=== PATIENT | male | born 1950 | race Caucasian/White ===

== ENCOUNTER 2017-05-30 16:21 | Observation (INO) | payer MEDICARE, OTHER ==
[~2017-05-30] VITALS: Ht 185.4 cm; Wt 93.0 kg
--- OUTSIDE RECORDS SUMMARY | 2017-05-30 16:24 | XMS REPORT | Summary of Care ---
Author Author Sergei HERNANDEZ Melania Organization Unknown Address [facility] Phone Unavailable Care Team Providers Care Casting Machine Operator Automatic Name Role Phone Melania Mai LVN Unavailable Unavailable EVE Hoyos, FANNY Campos Unavailable CANELO Eli, KARINA Unavailable Unavailable HENRY Eli, ANNA Unavailable Unavailable CANELO HDZ, KARINA QUINN Unavailable Unavailable EVE HOOPER [facility], FANNY Mccormick Unavailable Unavailable Unavailable Unavailable Functional Status Name Dates Details Functional status health issues are not documented Status: Name Dates Details Cognitive status health issues are not documented Status: Problems Name Dates Details Proteinuria (791.0, R80.9) Status: Active 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, N52.9) Status: Active Non-compliance (V15.81, Z91.19) Status: Active History of Acute bacterial prostatitis (601.0, N41.0) Status: Resolved History of pneumonia (V12.61, Z87.01) Status: Resolved Insomnia (780.52, G47.00) Status: Active Need for hepatitis C screening test (V73.89, Z11.59) Status: Active GERD (gastroesophageal reflux disease) (530.81, K21.9) Status: Active Vitamin deficiency (269.2, E56.9) Status: Active SOBOE (shortness of breath on exertion) (786.05, R06.02) Status: Active Encounter for prostate cancer screening (V76.44, Z12.5) Status: Active Colon cancer screening (V76.51, Z12.11) Status: Active Elevated brain natriuretic peptide (BNP) level (790.99, R79.89) Status: Active Dizziness (780.4, R42) Status: Active Other elevated white blood cell (WBC) count (288.69, D72.828) Status: Active Chest pain due to myocardial ischemia, unspecified ischemic chest pain type ( 786.50, I20.9) Status: Active Hyperlipidemia (272.4, E78.5) Status: Active Elevated BP without diagnosis of hypertension (796.2, R03.0) Status: Active Allergic rhinitis, seasonal (477.9, J30.2) Status: Active Dysuria (788.1, R30.0) Status: Active Back pain (724.5, M54.9) Status: Active Prostatitis, unspecified prostatitis type (601.9, N41.9) Status: Active Hypothyroidism (244.9, E03.9) Status: Active Other fatigue (780.79, R53.83) Status: Active Medications Name Dates Details Vyvanse 50 MG Oral Capsule TAKE 1 CAPSULE DAILY IN THE MORNING. Active Cialis 20 MG Oral Tablet TAKE 1 TABLET 1 HOUR BEFORE ACTIVITY NEEDED. * Quantity: 6 Refills: 5 FANNY PRADO N.P. * Start : 31-Jan-2014 Active Atorvastatin Calcium 40 MG Oral Tablet TAKE 1 TABLET DAILY DIRECTED. * Refills: 0 Active 90 Tablet Bottle Metoprolol Succinate ER 25 MG Oral Tablet Extended Release 24 Hour TAKE 1 TABLET DAILY. * Refills: 0 Active Tamsulosin HCl - 0.4 MG Oral Capsule TAKE 1 CAPSULE DAILY * Quantity: 30 Refills: 0 Active Lunesta 3 MG Oral Tablet TAKE 1 TABLET AT BEDTIME. * Refills: 0 Active Vitamin D TABS take 50,000 units weekly * Refills: 0 Active Clopidogrel Bisulfate 75 MG Oral Tablet TAKE 1 TABLET BY MOUTH EVERY DAY * Refills: 0 Active 30 Tablet Bottle Synthroid 175 MCG Oral Tablet TAKE 1 TABLET BY MOUTH EVERY DAY * Quantity: 90 Refills: 0 KARINA LEMOS M.D. * Start : 05-Dec-2016 Active Celecoxib 200 MG Oral Capsule TAKE 1 CAPSULE TWICE DAILY * Quantity: 60 Refills: 3 ANNA FIGUEROA M.D. * Start : 24-Feb-2017 Active Allergies and Adverse Reactions Name Dates Details Tetracyclines (Allergy) Status: Active Past Medical History Name Dates Details History of Acute bacterial prostatitis (601.0, N41.0) Status: Resolved History of Acute pain of left shoulder (719.41, M25.512) Status: Resolved History of Acute pharyngitis due to other specified organisms (462, J02.8) Status: Resolved History of bladder infections (V13.02, Z87.440) Status: Resolved History of Cellulitis (682.9, L03.90) Status: Resolved History of Chronic allergic conjunctivitis (372.14, H10.45) Status: Resolved History of Chronic kidney disease, stage III (moderate) (585.3, N18.3) Status: Resolved History of Chronic kidney disease, stage III (moderate) (585.3, N18.3) Status: Resolved History of constipation (V12.79, Z87.19) Status: Resolved History of Cough, persistent (786.2, R05) Status: Resolved History of essential hypertension (V12.59, Z86.79) Status: Resolved History of fever (V13.89, Z87.898) Status: Resolved History of Flank pain (789.09, R10.9) Status: Resolved History of hemorrhoids (V13.89, Z87.19) Status: Resolved History of hemorrhoids (V13.89, Z87.19) Status: Resolved History of hyperlipidemia (V12.29, Z86.39) Status: Resolved History of hypothyroidism (V12.29, Z86.39) Status: Resolved History of insomnia (V13.89, Z87.898) Status: Resolved History of insomnia (V13.89, Z87.898) Status: Resolved History of Myalgia and myositis (729.1) Status: Resolved History of Numbness (782.0, R20.0) Status: Resolved History of Otitis externa (380.10, H60.90) Status: Resolved History of pneumonia (V12.61, Z87.01) Status: Resolved History of prostatitis (V13.89, Z87.438) Status: Resolved 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, 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) Status: Resolved 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, 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) Status: Resolved History of syphilis (V12.09, Z86.19) Status: Resolved 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, E29.1) Status: Resolved History of Upper respiratory infection, acute (465.9, J06.9) Status: Resolved History of Urinary frequency (788.41, R35.0) Status: Resolved History of varicose veins (V12.59, Z86.79) Status: Resolved History of varicose veins (V12.59, Z86.79) Status: Resolved History of Varicose veins of lower extremity with inflammation (454.1, I83.10) Status: Resolved History of Varicose veins of lower extremity with pain (454.8, I83.819) Status: Resolved History of Venous insufficiency (chronic) (peripheral) (459.81, I87.2) Status: Resolved Personal history of urinary tract infection (V13.02, Z87.440) Status: Resolved Procedures Procedure Dates Details [QLH] TSH, 3RD GENERATION W/REFLEX TO FT4 Date: 12-May-2017 History of Cholecystectomy Completed History of Ear Pressure Equalization Tube, Insertion, Bilaterally Completed History of Varicose Vein Ligation Completed History of Foot Surgery Completed History of cardiac catheterization with stent placement Completed Immunization Name Dates Details Immunizations not documented Family History Name Dates Details Family history of varicose veins (V17.49, Z82.49) Status: Active No significant family history Status: Active Name Dates Details Family history of Lung Cancer (V16.1) Status: Active No significant family history Status: Active Family history of cardiovascular disease (V17.49, Z82.49) Status: Active Name Dates Details Family history of Hypothyroidism (244.9, E03.9) Status: Active Name Dates Details Family history of Hypothyroidism, postablative (244.1, E89.0) Status: Active Social History Name Dates Details - Status: Name Dates Details Former smoker Vital Signs Date Test Result Details [id number] Physical Findings 2016 Status: Comments: Colonoscopy Physical Findings 0 Status: Comments: PHQ-2 Adult Depression Screening Physical Findings 6 Status: Comments: PHQ-9 Adult Depression Screening [id number] BP Systolic 100 mm[Hg] Status: Comments: Location: LUE; Position: Sitting BP Diastolic 65 mm[Hg] Status: Comments: Location: LUE; Position: Sitting Height 73 in Status: Weight 206 lb Status: Body Mass Index Calculated 27.18 kg/m2 Status: Body Surface Area Calculated 2.18 m2 Status: Temperature 98.1 f Status: Comments: Method: Temporal Heart Rate 75 /min Status: Comments: Quality: Normal Respiration Rate 18 /min Status: Comments: Quality: Normal Results Date Description Value Details 98-Xxo-121724:34 [QLH] T4, FREE T4, FREE 1.3 ng/dl (Normal) Range: 0.8-1.8 57-Eup-011142:34 [QLH] TSH, 3RD GENERATION W/REFLEX TO FT4 Comments: REPORT COMMENT:FASTING:NO TSH, 3RD GENERATION W/REFLEX TO FT4 8.94 {MIU/L} (Above high threshold) Range: 0.40-4.50 Plan of Care Name Dates Details Planned Observations Planned Goals not documented Instructions Name Dates Details Instructions not documented Encounters Appointment; SELVIN WEBSTER M.D. Encounter Diagnosis: Problem not documented On: 19-May-2015 16:00 Appointment; SELVIN WEBSTER M.D. Encounter Diagnosis: Problem not documented On: 09-Jun-2015 16:00 Appointment; SELVIN WEBSTER M.D. Encounter Diagnosis: Problem not documented On: 17-Aug-2015 14:00 Appointment; RAIMUNDO QUINTANILLA D.O. Encounter Diagnosis: Problem not documented On: 21-Sep-2015 12:00 Appointment; FANNY PRADO NP Encounter Diagnosis: Problem not documented On: 15-Dec-2015 17:00 Appointment; SELVIN WEBSTER M.D. Encounter Diagnosis: Problem not documented On: 27-Feb-2016 14:00 Appointment; ANNA FIGUEROA M.D. Encounter Diagnosis: Problem not documented On: 08-Mar-2016 16:00 Appointment; FANNY PRADO NP Encounter Diagnosis: Problem not documented On: 10-Apr-2016 13:30 Appointment; SELVIN WEBSTER M.D. Encounter Diagnosis: Problem not documented On: 28-May-2016 13:00 Appointment; SELVIN WEBSTER M.D. Encounter Diagnosis: Problem not documented On: 28-Aug-2016 14:30 Appointment; KARINA LEMOS M.D. Encounter Diagnosis: Problem not documented On: 04-Dec-2016 16:00 Appointment; KERRI TENORIO M.D. Encounter Diagnosis: Problem not documented On: 13-Dec-2016 13:20 Appointment; ANNA FIGUEROA M.D. Encounter Diagnosis: Problem not documented On: 24-Feb-2017 14:15 Appointment; KARINA LEMOS M.D. Encounter Diagnosis: Problem not documented On: 12-May-2017 12:45
[2017-05-30] MEDS ORDERED: ASPIRIN 81 MG CHEW TAB PO STA (17:09)
--- NOTE | 2017-05-30 17:43 | Diagnostic Imaging Report ---
PROCEDURE: Frontal and lateral views of the chest. COMPARISON: None. INDICATIONS: CHEST PAIN FINDINGS: Lines/tubes: None. Lungs: The lungs are well inflated and clear. There is no evidence of pneumonia or pulmonary edema. Pleura: There is no pleural effusion or pneumothorax. Heart and mediastinum: The heart and the mediastinum are normal. Bones: No acute bony abnormality. Degenerative changes of thoracic spine. Mildly elevated right hemidiaphragm. IMPRESSION: 1. No acute cardiopulmonary disease. Dictated by: Sander Ponce M.D. on 05/30/2017 at 17:43 Electronically approved by: Sander Ponce M.D. on 05/30/2017 at 17:43
[2017-05-30 17:54] LABS: BASOPHILS # (AUTO) 0.1 (0.0-0.1); EOSINOPHILS # (AUTO) 0.1 (0.0-0.4); HEMATOCRIT 36.2 % (38.2-49.6); LYMPHOCYTES % 22.8 % (18.0-39.1); MEAN CORPUSCULAR HEMOGLOBIN 32.8 pg (28-32); MEAN CORPUSCULAR HGB CONC 35.9 g/dL (31-35); MEAN CORPUSCULAR VOLUME 91.4 fL (81-99); MONOCYTES # (AUTO) 0.8 (0.2-0.8); MONOCYTES % 9.4 % (4.4-11.3); NEUTROPHILS # (AUTO) 5.7 (2.1-6.9); NEUTROPHILS % 64.5 % (38.7-80.0); PLATELET COUNT 264 x10e3/uL (140-360); RED BLOOD COUNT 3.96 x10e6/uL (4.3-5.7); RED CELL DISTRIBUTION WIDTH 15.7 % (11.7-14.4)
[2017-05-30 18:02] LABS: INR 1.17
[2017-05-30 18:03] LABS: PARTIAL THROMBOPLASTIN TIME 37.3 seconds (23.8-35.5)
[2017-05-30 18:13] LABS: ALANINE AMINOTRANSFERASE 36 IU/L (0-55); ALBUMIN 3.9 g/dL (3.5-5.0); ALBUMIN/GLOBULIN RATIO 1.3 (0.8-2.0); ALKALINE PHOSPHATASE 56 IU/L (40-150); ANION GAP 10.9 mmol/L (8-16); BLOOD UREA NITROGEN 31 mg/dL (7-26); BUN/CREATININE RATIO 23 (6-25); CALCIUM 8.9 mg/dL (8.4-10.2); CARBON DIOXIDE 26 mmol/L (22-29); CHLORIDE 104 mmol/L (98-107); CREATINE KINASE 359 IU/L (30-200); CREATININE, SERUM 1.36 mg/dL (0.72-1.25); EST GLOMERULAR FILTRATION RATE 53 ML/MIN (60-); GLUCOSE 96 mg/dL (74-118); POTASSIUM 3.9 mmol/L (3.5-5.1); SODIUM 137 mmol/L (136-145)
[2017-05-30] MEDS ORDERED: FAMOTIDINE 20 MG TAB PO SCH (18:45)
[2017-05-30] MEDS ORDERED: NITROGLYCERIN 0.4 MG SUBL SL PRN (18:45)
[2017-05-30] MEDS ORDERED: MORPHINE SULFATE 2 MG/ML SYR IV PRN (18:45)
[2017-05-30 19:22] LABS: BILIRUBIN,URINE NEGATIVE (NEGATIVE); CLARITY,URINE CLEAR (CLEAR); COLOR,URINE YELLOW (YELLOW); KETONES,URINE NEGATIVE (NEGATIVE); LEUKOCYTE ESTERASE ,URINE NEGATIVE (NEGATIVE); NITRITE,URINE NEGATIVE (NEGATIVE); PROTEIN,URINE DIPSTICK NEGATIVE (NEGATIVE); URINE UROBILINOGEN 0.2 mg/dL (0.2 - 1)
[2017-05-30] MEDS: NITROGLYCERIN 0.4 MG SUBL SL PRN ×2 (19:30→19:35)
[2017-05-30] MEDS ORDERED: ACETAMINOPHEN 325 MG TAB PO PRN (19:30)
--- OUTSIDE RECORDS SUMMARY | 2017-05-30 20:17 | XMS REPORT ---
Author Author [facility] Address Unknown Phone Unavailable Care Team Providers Care Flooring Machine Operator Name Role Phone ANDRE KAI Unavailable Unavailable Problems This patient has no known problems. Allergies, Adverse Reactions, Alerts This patient has no known allergies or adverse reactions. Medications This patient has no known medications. Results Test Description Test Time Test Comments Text Results Atomic Results Result Comments CHEST 2 VIEWS [place] [address] Patient Name: JUSTICE ELLINGTON MR # : [id number] : 1950 Age/Sex: 67/M Req #: [id number] Adm Physician: Ordered by: KAI POWELL DO Report #: [id number] Location: ER Room/Bed: Procedure: [id number] DX/ CHEST 2 VIEWS Exam Date: 05/30/17 Exam Time: 1720 REPORT STATUS: Signed PROCEDURE: Frontal and lateral views of the chest. COMPARISON: None. INDICATIONS: CHEST PAIN FINDINGS: Lines/tubes: None. Lungs: The lungs are well inflated and clear. There is no evidence of pneumonia or pulmonary edema. Pleura: There is no pleural effusion or pneumothorax. Heart and mediastinum: The heart and the mediastinum are normal. Bones: No acute bony abnormality. Degenerative changes of thoracic spine. Mildly elevated right hemidiaphragm. IMPRESSION: 1. No acute cardiopulmonary disease. Dictated by: Sander Ponce M.D. on 05/30/2017 at 17:43 Electronically approved by: Sander Ponce M.D. on 05/30/2017 at 17:43 Dictated By: SANDER PONCE MD 42 Transcribed By: GLADYS on 05/30/171742 COPY TO: KAI POWELL DO
[2017-05-30 20:31] VITALS: BP 149/74
[2017-05-30] MEDS ORDERED: SIMVASTATIN 40 MG TAB PO SCH (21:00)
[2017-05-30 21:46] VITALS: BP 149/74
[2017-05-31 00:03] VITALS: BP 117/59
[2017-05-31 03:15] LABS: CREATINE KINASE 268 IU/L (30-200)
[2017-05-31 04:00] VITALS: BP 118/55
[2017-05-31 06:19] LABS: BASOPHILS # (AUTO) 0.1 (0.0-0.1); BASOPHILS % 1.2 % (0.0-1.0); EOSINOPHILS # (AUTO) 0.1 (0.0-0.4); EOSINOPHILS % 0.9 % (0.0-6.0); HEMATOCRIT 37.2 % (38.2-49.6); HEMOGLOBIN 13.2 g/dL (14.0-18.0); LYMPHOCYTES # (AUTO) 1.8 (1.0-3.2); LYMPHOCYTES % 23.9 % (18.0-39.1); MEAN CORPUSCULAR HGB CONC 35.5 g/dL (31-35); MEAN CORPUSCULAR VOLUME 90.3 fL (81-99); MONOCYTES # (AUTO) 0.8 (0.2-0.8); MONOCYTES % 10.4 % (4.4-11.3); NEUTROPHILS # (AUTO) 4.7 (2.1-6.9); NEUTROPHILS % 63.2 % (38.7-80.0); PLATELET COUNT 245 x10e3/uL (140-360); RED BLOOD COUNT 4.12 x10e6/uL (4.3-5.7); RED CELL DISTRIBUTION WIDTH 14.8 % (11.7-14.4)
[2017-05-31 07:01] LABS: ALBUMIN 3.6 g/dL (3.5-5.0); ALBUMIN/GLOBULIN RATIO 1.2 (0.8-2.0); ANION GAP 10.1 mmol/L (8-16); CALCIUM 8.9 mg/dL (8.4-10.2); CHOL/HDL RATIO 2.9 (3.9-4.7); CREATININE, SERUM 1.25 mg/dL (0.72-1.25); MAGNESIUM 2.1 MG/DL (1.3-2.1); POTASSIUM 4.1 mmol/L (3.5-5.1)
[2017-05-31 07:35] VITALS: BP 118/55
[2017-05-31 08:12] VITALS: BP 154/69
[2017-05-31] MEDS ORDERED: FAMOTIDINE 20 MG TAB PO SCH (09:00)
[2017-05-31] MEDS ORDERED: ASPIRIN 325 MG TAB EC PO SCH (09:00)
[2017-05-31 10:56] LABS: CREATINE KINASE MB 2.2 ng/mL (0-5.0)
[2017-05-31] MEDS ORDERED: METOPROLOL SUCCINATE 50 MG TAB XL PO SCH (12:45)
[2017-05-31] MEDS ORDERED: NITROGLYCERIN 0.4 MG SUBL SL PRN (12:45)
[2017-05-31 13:17] VITALS: BP 142/76
--- NOTE | 2017-05-31 15:46 | History and Physical ---
SHORTSTAY SUMMARY PRIMARY CARE PROVIDER: Dr. Chad Waters ADMITTING DIAGNOSES 1. Chest pain, rule out acute coronary syndrome. 2. Hypertension with known coronary artery disease. DISCHARGE DIAGNOSES 1. Chest pain, rule out acute coronary syndrome. 2. Hypertension with known coronary artery disease. BRIEF HISTORY: Mr. Brooks is a 67-year-old gentleman who presented with chest pain and elevated blood pressure times 1 day. He has a history of IA and 3 stents placed about a year ago. REVIEW OF SYSTEMS: He denies fever, chills or weight loss. He denies sinus congestion or sore throat. He is complaining of chest pain as noted. No shortness of breath or diaphoresis. He has no shortness of breath, no wheezing or cough. He denies abdominal pain, nausea, vomiting, or melena. He denies dysuria or flank pain. He denies rash or pruritus. He denies joint pain or swelling. He denies headache, vertigo or loss of consciousness. He denies depression, agitation, homicide, or suicidal ideation. PAST MEDICAL HISTORY: Significant for long-standing hypertension and coronary artery disease. He had an IA a year ago. Heart cath at that time and had 3 stents placed that was a year ago. CURRENT MEDICATIONS: Unknown. He does state that he takes Plavix, aspirin and metoprolol. ALLERGIES: HE HAS A STATED ALLERGY TO TETRACYCLINE. He has a history of cholecystectomy several years ago. He has also had a right knee arthroscopy about 10 years ago. He has had both feet worked on for [email or web address] I believe. FAMILY HISTORY: Significant for hypertension. SOCIAL HISTORY: The patient is to his . He is . Wolof is his primary language. He does not smoke, drink or use illegal drugs. He has never smoked and is generally independently functioning. PHYSICAL EXAMINATION PSYCHIATRIC: He is alert and oriented times 3 with normal mood and affect. CONSTITUTIONAL: He has a normal body habitus. He is in no acute distress. VITAL SIGNS: Blood pressure 142/72, pulse 58 and regular, respiratory rate 18, O2 sat 98%, temperature 96.6. HEENT: His head is atraumatic. His eyes are anicteric with clear conjunctivae. Ears and nares are without erythema or discharge. Oropharynx is clear. NECK: Supple with no mass or thyromegaly. LYMPHATIC SYSTEM: He has no palpable cervical, axillary or inguinal adenopathy. CARDIOVASCULAR: His heart has a regular rate and rhythm without murmur or extra sound. He has no peripheral edema. He has no carotid bruit. He has palpable dorsal pedal pulses. RESPIRATORY: Lungs are clear to auscultation and percussion with normal respiratory effort. GASTROINTESTINAL: His abdomen is soft without organomegaly, masses or tenderness. He has normal bowel sounds present. CUTANEOUS: His skin is warm and dry to touch. No rash or skin breakdown. MUSCULOSKELETAL: His joints are in normal alignment without erythema or swelling. He has no calf tenderness. NEUROLOGIC: Nonfocal with intact cranial nerves and no motor or sensory deficits. DIAGNOSTIC STUDIES: His EKG shows sinus rhythm with some PVCs, and there is poor R-wave progression across V3. Could be lead placement or old anterior IA. He had an echocardiogram that showed normal LV size. No wall motion abnormalities and ejection fraction of 65% to 70%. Did have some right ventricular enlargement and some mild left ventricular hypertrophy. His chest x-ray showed no acute disease. His chemistry profile showed normal electrolytes. CO2 25, creatinine 1.25, BUN 22, glucose 103 for a GFR of 58. Transaminases, bilirubin and alk phos are normal. His troponin is less than 0.01, less than 0.001, and 0.004. BNP 30.3. Calcium 8.9. Cholesterol 113, LDL 62, HDL 39. His CBC shows a white count of 8.9 with a normal differential. Hemoglobin 13, hematocrit 36.2 and platelet count 264,000. His coags were normal. His urine was clear. IMPRESSION AND PLAN 1. Chest pain: Rule out acute coronary syndrome. Patient is admitted for observation. Serial cardiac enzymes and electrocardiograms and his composite technician has been consulted. 2. Hypertension complicated by coronary artery disease: Will continue his regular medications of metoprolol, his Lipitor, as well as aspirin and Plavix. HOSPITAL COURSE: The patient was admitted to the floor overnight. Serial cardiac enzymes and EKGs were negative for myocardial injury. Echocardiogram showed no wall motion abnormalities and a good ejection fraction. Cardiology saw the patient and felt no further workup was necessary. Recommend to discharge home. The patient will be discharged home to continue all of his home meds, a cardiac diet and activity as tolerated. Will follow up with both his PCP and cardiology within 2 weeks. Job#: [id number] ASHISH
--- NOTE | 2017-05-31 16:36 | Consultation ---
DATE OF CONSULTATION: May 31, 2017 CARDIOLOGY CONSULTATION REQUESTING PHYSICIAN: Franki Mims MD REASON FOR CONSULTATION: Chest pain. HISTORY OF PRESENT ILLNESS: This is a 67-year-old man with coronary artery disease status post LAD PCI for non-ST elevation myocardial infarction in April 2016, hypothyroidism, hypertension, and hyperlipidemia who presented with complaints of chest pain. The patient follows with Dr. Hewitt in the office and had a normal stress test in February of this year; however, he reports he began having chest pain 3 days ago with radiation to the jaw, back of the head, and down the left arm. Given its persistent nature, the patient presented to the ER for further evaluation. The patient indicates that this chest pain improved when he was given nitroglycerin in the ER. REVIEW OF SYSTEMS: Negative except as per HPI. PAST MEDICAL HISTORY 1. Coronary artery status post LAD PCI for a non-ST elevation myocardial infarction in April 2016. 2. Hypothyroidism. 3. Hypertension. 4. Hyperlipidemia. PAST SURGICAL HISTORY 1. Cholecystectomy. 2. Right knee surgery. 3. Appendectomy. 4. Vasectomy. ALLERGIES: Please see EMR. MEDICATIONS: Please see medication list. SOCIAL HISTORY: Denies tobacco, alcohol, or illicit drugs. FAMILY HISTORY: Pertinent for father who had a 3-vessel CABG. PHYSICAL EXAMINATION VITAL SIGNS: Temperature 97.6 degrees, pulse 68, respiratory rate 18, blood pressure 154/89, and oxygen saturation 97% on room air. GENERAL: A well-developed and well-nourished man, in no acute distress. HEENT: Normocephalic, atraumatic. Pupils equal. No scleral icterus. NECK: Supple. No thyromegaly or cervical lymphadenopathy. No carotid bruits. LUNGS: Clear to auscultation bilaterally. No wheezes or crackles. CARDIOVASCULAR: Normal rate. Regular rhythm. No murmur. Normal S1 and S2. ABDOMEN: Soft and nontender. EXTREMITIES: No edema. NEURO: Nonfocal exam. LABS: WBC 7.4, hemoglobin 13.2, hematocrit 37.2, and platelets 245. Sodium is 137, potassium 4.1, chloride 106, CO2 25, BUN 22, and creatinine 1.25. Troponin 0.004. Cholesterol 113, LDL 62, HDL 39, and triglycerides 58. IMAGING: EKG; sinus rhythm with occasional PVCs, cannot rule out anterior infarct, age indeterminate. Chest x-ray; no acute cardiopulmonary disease. IMPRESSION 1. Chest pain. 2. Coronary artery disease, status post left anterior descending artery percutaneous coronary intervention in April 2016. 3. Hypertension. 4. Hyperlipidemia. 5. Hypothyroidism. RECOMMENDATIONS: Patient is ruled out for myocardial infarction with serial cardiac biomarkers. Echocardiogram demonstrated normal LV systolic function. Resume home medications including aspirin, atorvastatin, and Plavix. We will start Ranexa and increase the patient's antianginal therapies including metoprolol. Provide prescription for sublingual nitroglycerin for the patient. No further cardiac evaluation is indicated at this time. ER warnings were provided if he continues to have chest pain. We will have patient followup with Dr. Hewitt in the office to schedule further ischemic evaluation. Thank you for this consult. We will continue to follow. Job#: [id number] BETTY
[2017-05-31] MEDS ORDERED: RANOLAZINE 500 MG TABSR PO SCH (17:00)
[2017-05-31] MEDS ORDERED: ATORVASTATIN 20 MG TAB PO SCH (21:00)
[2017-06-01] MEDS ORDERED: CLOPIDOGREL BISULFATE 75 MG TAB PO SCH (09:00)
[2017-06-01] MEDS ORDERED: ASPIRIN 81 MG ENTERIC COATED PO SCH (09:00)
== END 2017-05-31 15:31 | disposition home or self-care (01) ==
LOC: ER 16:21 → IMCU 20:13
PROVIDERS: ADMIT Internal Medicine; ATTEND Internal Medicine
DX: R07.9 Chest pain, unspecified (principal); I25.10 Atherosclerotic heart disease of native coronary artery without angina pectoris; I11.9 Hypertensive heart disease without heart failure; I25.2 Old myocardial infarction; Z95.5 Presence of coronary angioplasty implant and graft
CPT/HCPCS: 36415 ×2; 71046; 80053 ×2; 80061; 81001; 82550 ×2; 82553 ×2; 83735; 83880; 84100; 84484 ×2; 85025 ×2; 85610; 85730; 93005; 93306; 99284; G0378 ×2

== ENCOUNTER → 2017-06-17 | Day surgery (SDC) | payer MEDICARE, OTHER ==
[2017-06-16 14:57] LABS: BASOPHILS # (AUTO) 0.1 (0.0-0.1); BASOPHILS % 1.4 % (0.0-1.0); EOSINOPHILS # (AUTO) 0.1 (0.0-0.4); EOSINOPHILS % 1.3 % (0.0-6.0); HEMATOCRIT 40.5 % (38.2-49.6); HEMOGLOBIN 13.6 g/dL (14.0-18.0); LYMPHOCYTES # (AUTO) 2.4 (1.0-3.2); LYMPHOCYTES % 28.4 % (18.0-39.1); MEAN CORPUSCULAR HEMOGLOBIN 28.9 pg (28-32); MEAN CORPUSCULAR HGB CONC 33.6 g/dL (31-35); MEAN CORPUSCULAR VOLUME 86.2 fL (81-99); MONOCYTES # (AUTO) 0.9 (0.2-0.8); MONOCYTES % 10.3 % (4.4-11.3); NEUTROPHILS # (AUTO) 4.8 (2.1-6.9); PLATELET COUNT 252 x10e3/uL (140-360); RED CELL DISTRIBUTION WIDTH 13.5 % (11.7-14.4)
[2017-06-16 15:07] LABS: INR 1.19; PROTHROMBIN TIME 14.2 seconds (11.9-14.5)
[2017-06-16 15:16] LABS: ALBUMIN 3.6 g/dL (3.5-5.0); ANION GAP 11.9 mmol/L (8-16); CALCIUM 9.3 mg/dL (8.4-10.2); CHOL/HDL RATIO 2.7 (3.9-4.7); CREATININE, SERUM 1.35 mg/dL (0.72-1.25); POTASSIUM 4.9 mmol/L (3.5-5.1)
[~2017-06-17] VITALS: Ht 185.4 cm; Wt 93.0 kg
[2017-06-17] VITALS (8 sets, daily range): BP systolic 116–143; BP diastolic 62–83
[~2017-06-17] MED LIST: ATORVASTATIN CA20 MG PO; FENTANYL CITRATE/PF 100MCG/2 ML INJ ONE; HEPARIN SOD/SOD CHLORIDE 2,000 ML ONE; IOPAMIDOL 370 MG/ML 200 ML INFUS..BTL INJ ONE; LIDOCAINE HCL 2% LOCAL 20 ML VIAL ONE; LUNESTA3 MG; METOPROLOL SUCC50 MG PO; MIDAZOLAM HCL 2 MG/2 ML VIAL ONE; NITROGLYCERIN/D5W 200 MCG/ML 250 ML ONE; NITROGLYCERIN0.4 MG SL; PLAVIX75 MG PO; RANEXA500 MG PO; SODIUM CHLORIDE 0.9% 1000ML 1,000 ML ONE; SYNTHROID125 MCG PO; TAMSULOSIN HCL0.4 MG; VERAPAMIL HCL 2.5 MG/ML 2 ML VIAL ONE
--- OUTSIDE RECORDS SUMMARY | 2017-06-17 07:56 | XMS REPORT | Continuity of Care Document ---
Author Author [facility] Organization [facility] Address [address] [place] [address] Phone Unavailable Care Team Providers Care Grinder Operator Name Role Phone KARINA LEMOS PCP Insurance Providers Guarantor Justice Brooks Address [address] [place] [address] Email [email or web address] Payer Medicare A & B Policy Number [id number] Subscriber's Name Justice Brooks Relationship 18 Self / Same As Patient Effective Date 16 [facility] Policy Number [id number] Subscriber's Name Justice Brooks Relationship 18 Self / Same As Patient Advance Directives Directive Response Recorded Date/Time Does the patient have an advance directive? Yes 05/30/17 9:36pm If yes, is advance directive on file with [facility]? No 05/30/17 9:36pm If not on file with [facility] will patient provide a copy? Yes 05/30/17 7:21pm Do you have a Directive to Physician? No 05/30/17 7:21pm Do you have a Medical Power of Valance Cutter? No 05/30/17 7:21pm Do you have an out of hospital Do Not Resuscitate Order? No 05/30/17 7:21pm Do you have any special needs we should be aware of? No 05/30/17 7:21pm Do you have a support person here with you today? Yes 05/30/17 7:21pm Did patient receive Notice of Privacy Practices? Yes 05/30/17 7:21pm Did patient receive patient rights and responsibilities? Yes 05/30/17 7:21pm Problems Medical Problem Onset Date Status CAD (coronary artery disease) Unknown Chest pain Unknown Medications No medication information available. Social History Social History Problem Response Recorded Date/Time Onset Date Status Hx Psychiatric Problems No 05/30/2017 9:36pm Not Applicable Not Applicable Hx Eating Disorder No 05/30/2017 9:36pm Not Applicable Not Applicable Hx Substance Use Disorder No 05/30/2017 9:36pm Not Applicable Not Applicable Hx Depression No 05/30/2017 9:36pm Not Applicable Not Applicable Hx Alcohol Use No 05/30/2017 9:36pm Not Applicable Not Applicable Hx Substance Use Treatment No 05/30/2017 9:36pm Not Applicable Not Applicable Hx Physical Abuse No 05/30/2017 9:36pm Not Applicable Not Applicable Smoking Status Start Date Stop Date Former smoker Hospital Discharge Instructions No hospital discharge instruction information available. Plan of Care Discharge Date 05/31/17 3:31pm Disposition HOME, SELF-CARE Instructions/Education Provided Chest Pain - Noncardiac Chest Pain - Chest Wall Prescriptions See Medication Section Additional Instructions/Education Cardiac diet Resume home meds activity as tolerated f/u PCP and cardiology w/in 2wks. Functional Status Query Response Date Recorded Assistive Devices None May 30, 2017 9:46pm Ambulation Ability Independent May 30, 2017 9:46pm Toileting Ability Independent May 30, 2017 9:46pm Allergies, Adverse Reactions, Alerts Allergen Type Severity Reaction Status Last Updated Tetracycline Allergy Severe Active 05/30/17 Immunizations No immunization information available. Vital Signs Acute Vital Signs Vital Response Date/Time Temperature (Fahrenheit) 96.6 degrees F (97.6 - 99.5) 05/31/2017 1:17pm Pulse Pulse Rate (adult) 58 bpm (60 - 90) 05/31/2017 1:17pm Respiratory Rate 18 bpm (12 - 24) 05/31/2017 1:17pm Blood Pressure 142/76 mm Hg 05/31/2017 1:17pm Height 6 ft 1 in 05/30/2017 4:48pm Weight 205.01 lb 05/31/2017 8:13am Body Mass Index 27.0 kg/m^2 05/31/2017 8:13am Results Laboratory Results Test Name Result Units Flags Reference Collection Date/Time Result Date/ Time Comments White Blood Count 7.40 x10e3/uL 4.8-10.8 05/31/2017 5:4105/31/2017 6 :30am Red Blood Count 4.12 x10e6/uL L 4.3-5.7 05/31/2017 5:4105/31/2017 6: 30am Hemoglobin 13.2 g/dL L 14.0-18.0 05/31/2017 5:4105/31/2017 6:30am Hematocrit 37.2 % L 38.2-49.6 05/31/2017 5:4105/31/2017 6:30am Mean Corpuscular Volume 90.3 fL 81-99 05/31/2017 5:4105/31/2017 6: 30am Mean Corpuscular Hemoglobin 32.0 pg 28-32 05/31/2017 5:4105/31/2017 6:30am Mean Corpuscular Hemoglobin Concent 35.5 g/dL H 31-35 05/31/2017 5:4105/31/2017 6:30am Red Cell Distribution Width 14.8 % H 11.7-14.4 05/31/2017 5:2017 6:30am Platelet Count 245 x10e3/uL 140-360 05/31/2017 5:4105/31/2017 6: 30am Neutrophils (%) (Auto) 63.2 % 38.7-80.0 05/31/2017 5:05/31/2017 6: 30am Lymphocytes (%) (Auto) 23.9 % 18.0-39.1 05/31/2017 5:4105/31/2017 6: 30am Monocytes (%) (Auto) 10.4 % 4.4-11.3 05/31/2017 5:4105/31/2017 6: 30am Eosinophils (%) (Auto) 0.9 % 0.0-6.0 05/31/2017 5:41am 05/31/2017 6: 30am Basophils (%) (Auto) 1.2 % H 0.0-1.0 05/31/2017 5:4105/31/2017 6: 30am IM GRANULOCYTES % 0.4 % 0.0-1.0 05/31/2017 5:41am 05/31/2017 6:30am Neutrophils # (Auto) 4.7 2.1-6.9 05/31/2017 5:4105/31/2017 6:30am Lymphocytes # (Auto) 1.8 1.0-3.2 05/31/2017 5:05/31/2017 6:30am Monocytes # (Auto) 0.8 0.2-0.8 05/31/2017 5:4105/31/2017 6:30am Eosinophils # (Auto) 0.1 0.0-0.4 05/31/2017 5:05/31/2017 6:30am Basophils # (Auto) 0.1 0.0-0.1 05/31/2017 5:05/31/2017 6:30am Absolute Immature Granulocyte (auto 0.03 x10e3/uL 0-0.1 05/31/2017 5: 05/31/2017 6:30am Prothrombin Time 14.0 seconds 11.9-14.5 05/30/2017 5:03pm 05/30/2017 6: 02pm Prothromb Time International Ratio 1.17 05/30/2017 5:03pm 2017 6:02pm Oral Anticoagulant Therapy INR Values: 1. Low Intensity Therapy 1.5 - 2.0 2. Moderate Intensity Therapy 2.0 - 3.0 3. High Intensity Therapy(1) 2.5 - 3.5 4. High Intensity Therapy(2) 3.0 - 4.0 5. Panic Value INR > 5.0 Activated Partial Thromboplast Time 37.3 seconds H 23.8-35.5 05/30/2017 5 :03pm 05/30/2017 6:04pm Urine Color YELLOW YELLOW 05/30/2017 5:03pm 05/30/2017 7:22pm Urine Clarity CLEAR CLEAR 05/30/2017 5:03pm 05/30/2017 7:22pm Urine Specific [place] 1.010 1.010-1.025 05/30/2017 5:03pm 2017 7:22pm Urine pH 6 5 - 7 05/30/2017 5:03pm 05/30/2017 7:22pm Urine Leukocyte Esterase NEGATIVE NEGATIVE 05/30/2017 5:03pm 2017 7:22pm Urine Nitrite NEGATIVE NEGATIVE 05/30/2017 5:03pm 05/30/2017 7:22pm Urine Protein NEGATIVE NEGATIVE 05/30/2017 5:03pm 05/30/2017 7:22pm Urine Glucose (UA) NEGATIVE NEGATIVE 05/30/2017 5:03pm 05/30/2017 7: 22pm Urine Ketones NEGATIVE NEGATIVE 05/30/2017 5:03pm 05/30/2017 7:22pm Urine Urobilinogen 0.2 mg/dL 0.2 - 1 05/30/2017 5:03pm 05/30/2017 7: 22pm Urine Bilirubin NEGATIVE NEGATIVE 05/30/2017 5:03pm 05/30/2017 7: 22pm Urine Blood NEGATIVE NEGATIVE 05/30/2017 5:03pm 05/30/2017 7:22pm Urine WBC NONE /HPF 0-5 05/30/2017 5:03pm 05/30/2017 7:32pm Urine RBC NONE /HPF 0-5 05/30/2017 5:03pm 05/30/2017 7:32pm Urine Bacteria NONE /HPF NONE 05/30/2017 5:03pm 05/30/2017 7:32pm Urine Epithelial Cells NONE /LPF NONE 05/30/2017 5:03pm 05/30/2017 7: 32pm Sodium Level 137 mmol/L 136-145 05/31/2017 5:41am 05/31/2017 7:09am Potassium Level 4.1 mmol/L 3.5-5.1 05/31/2017 5:41am 05/31/2017 7:09am Chloride Level 106 mmol/L 98-107 05/31/2017 5:41am 05/31/2017 7:09am Carbon Dioxide Level 25 mmol/L 22-05/31/2017 5:41am 05/31/2017 7: 09am Anion Gap 10.1 mmol/L 8-16 05/31/2017 5:41am 05/31/2017 7:09am Blood Urea Nitrogen 22 mg/dL 7-26 05/31/2017 5:05/31/2017 7:09am Creatinine 1.25 mg/dL 0.72-1.25 05/31/2017 5:05/31/2017 7:09am BUN/Creatinine Ratio 18 6-25 05/31/2017 5:4105/31/2017 7:09am Estimat Glomerular Filtration Rate 58 ML/MIN L 60- 05/31/2017 5: 7:09am Ranges were taken from the National Kidney Disease Education Program and the National Kidney Foundation literature. Reference ranges: 60 or greater: Normal 16-59 (for 3 consecutive months): Chronic kidney disease 15 or less: Kidney failure Glucose Level 103 mg/dL 74-118 05/31/2017 5:05/31/2017 7:09am Calcium Level 8.9 mg/dL 8.4-10.2 05/31/2017 5:05/31/2017 7:09am Phosphorus Level 3.0 MG/DL 2.3-4.7 05/31/2017 5:05/31/2017 7:09am Magnesium Level 2.1 MG/DL 1.3-2.1 05/31/2017 5:05/31/2017 7:09am Total Bilirubin 0.6 mg/dL 0.2-1.2 05/31/2017 5:05/31/2017 7:09am Aspartate Amino Transf (AST/SGOT) 29 IU/L 5-34 05/31/2017 5:2017 7:09am Alanine Aminotransferase (ALT/SGPT) 32 IU/L 0-55 05/31/2017 5: 7:09am Total Protein 6.5 g/dL 6.5-8.1 05/31/2017 5:05/31/2017 7:09am Albumin 3.6 g/dL 3.5-5.0 05/31/2017 5:05/31/2017 7:09am Globulin 2.9 g/dL 2.3-3.5 05/31/2017 5:05/31/2017 7:09am Albumin/Globulin Ratio 1.2 0.8-2.0 05/31/2017 5:41am 05/31/2017 7: 09am Alkaline Phosphatase 55 IU/L 40-150 05/31/2017 5:41am 05/31/2017 7: 09am Triglycerides Level 58 MG/DL 0-149 05/31/2017 5:41am 05/31/2017 7:09am Cholesterol Level 113 MD/DL 0-199 05/31/2017 5:41am 05/31/2017 7:09am Less than 200 mg/dL Low Risk 201 - 239 mg/dL Borderline Risk 240 mg/dl and greater High Risk LDL Cholesterol 62 MG/DL 60-130 05/31/2017 5:41am 05/31/2017 7:09am HDL Cholesterol 39 MG/DL L 40-60 05/31/2017 5:41am 05/31/2017 7:09am Cholesterol/HDL Ratio 2.9 L 3.9-4.7 05/31/2017 5:41am 05/31/2017 7: 09am B-Type Natriuretic Peptide 30.3 pg/mL 0-100 05/30/2017 5:03pm 2017 6:21pm Creatine Kinase 228 IU/L H 30-200 05/31/2017 10:30am 05/31/2017 11:02am Creatine Kinase MB 2.20 ng/mL 0-5.0 05/31/2017 10:30am 05/31/2017 11: 02am Troponin I 0.004 ng/mL 0-0.300 05/31/2017 10:30am 05/31/2017 11:02am Procedures Procedure Status Date Provider(s) X-ray of chest, two views Active 05/30/17 KAI POWELL DO Encounters Encounter Location Arrival/Admit Date Discharge/Depart Date Attending Provider Discharged Inpatient (obs) [facility] 05/30/17 8:13pm 3:31pm TAMMY QUINTERO MD
--- NOTE | 2017-06-17 14:40 | Operative Report ---
DATE OF PROCEDURE: June 17, 2017 INDICATIONS: Coronary artery disease, abnormal stress test. PROCEDURES PERFORMED 1. Left heart catheterization, selective coronary angiography. 2. Deployment of right wrist transradial band. COMPLICATIONS: None. RECOMMENDATIONS: Medical therapy for unstable angina. Access was obtained in the right radial artery using ultrasound guidance. A 5-[place] sheath was placed. Diagnostic coronary angiogram revealed minimal disease in the left main coronary artery. Left anterior descending artery stent was patent. Circumflex, diagonal and remaining left anterior descending artery had mild diffuse 20% to 30% stenosis. Right coronary artery proximal and mid 50% stenosis. Remaining vessels had diffuse 20% to 30% stenosis and excellent flow in all vessels. No critical stenosis or occlusions were noted. No intervention needed. Right wrist TR band applied. Patient discharged home same day. Job#: [id number]
== END | disposition home or self-care (01) ==
LOC: CATH LAB 07:52 → EDSTATUS 10:00
PROVIDERS: ATTEND Internal Medicine Interventional Cardiology
DX: I25.110 Atherosclerotic heart disease of native coronary artery with unstable angina pectoris (principal); Z98.61 Coronary angioplasty status; R94.39 Abnormal result of other cardiovascular function study; E11.9 Type 2 diabetes mellitus without complications; Z79.4 Long term (current) use of insulin; Z01.810 Encounter for preprocedural cardiovascular examination; Z01.812 Encounter for preprocedural laboratory examination; I25.2 Old myocardial infarction; Z79.02 Long term (current) use of antithrombotics/antiplatelets; Z79.82 Long term (current) use of aspirin; Z88.1 Allergy status to other antibiotic agents
CPT/HCPCS: 36415; 77002; 80053; 80061; 85025; 85610; 93005; 93458; C1887; J2001; J2250; J7030; Q9967; 36140

== ENCOUNTER → 2018-06-22 | Outpatient (CLI) | payer MEDICARE, OTHER ==
[~2018-06-22] MED LIST changes: -FENTANYL CITRATE/PF 100MCG/2 ML INJ ONE; -HEPARIN SOD/SOD CHLORIDE 2,000 ML ONE; -IOPAMIDOL 370 MG/ML 200 ML INFUS..BTL INJ ONE; -LIDOCAINE HCL 2% LOCAL 20 ML VIAL ONE; -MIDAZOLAM HCL 2 MG/2 ML VIAL ONE; -NITROGLYCERIN/D5W 200 MCG/ML 250 ML ONE; -SODIUM CHLORIDE 0.9% 1000ML 1,000 ML ONE; -VERAPAMIL HCL 2.5 MG/ML 2 ML VIAL ONE
--- NOTE | 2018-06-22 16:30 | Diagnostic Imaging Report ---
EXAMINATION: PA and lateral views of the chest. COMPARISON: 05/30/2017 CLINICAL HISTORY: Cough, shortness of breath DISCUSSION: Lungs are well-inflated. No focal airspace consolidation, pleural effusion, or pneumothorax. Skinfold projects over the right lower chest. Cardiomediastinal contour and pulmonary vasculature are within normal limits. No acute osseous abnormalities. Posttraumatic deformities of the left posterior fourth through seventh ribs unchanged. IMPRESSION: No acute cardiopulmonary abnormalities. Signed by: Dr. Rob Hearn M.D. on 06/22/2018 4:27 PM
== END ==
LOC: RAD 15:14
PROVIDERS: ATTEND Internal Medicine Interventional Cardiology
DX: R05 Cough (principal); R06.02 Shortness of breath
CPT/HCPCS: 71046

== ENCOUNTER → 2018-07-03 | Day surgery (SDC) | payer MEDICARE, OTHER ==
[2018-07-02 14:34] LABS: BASOPHILS # (AUTO) 0.1 (0.0-0.1); BASOPHILS % 1.1 % (0.0-1.0); EOSINOPHILS # (AUTO) 0.1 (0.0-0.4); EOSINOPHILS % 1.1 % (0.0-6.0); HEMATOCRIT 41.7 % (38.2-49.6); HEMOGLOBIN 13.7 g/dL (14.0-18.0); LYMPHOCYTES % 18.5 % (18.0-39.1); MEAN CORPUSCULAR HEMOGLOBIN 27.6 pg (28-32); MEAN CORPUSCULAR HGB CONC 32.9 g/dL (31-35); MEAN CORPUSCULAR VOLUME 84.1 fL (81-99); MONOCYTES # (AUTO) 1.1 (0.2-0.8); MONOCYTES % 10.5 % (4.4-11.3); NEUTROPHILS # (AUTO) 7.4 (2.1-6.9); PLATELET COUNT 275 x10e3/uL (140-360); RED BLOOD COUNT 4.96 x10e6/uL (4.3-5.7); RED CELL DISTRIBUTION WIDTH 16.1 % (11.7-14.4)
[2018-07-02 14:45] LABS: PROTHROMBIN TIME 13.7 seconds (11.9-14.5)
[2018-07-02 14:53] LABS: ALBUMIN 4.1 g/dL (3.5-5.0); ALBUMIN/GLOBULIN RATIO 1.4 (0.8-2.0); ANION GAP 11.4 mmol/L (8-16); CALCIUM 9.5 mg/dL (8.4-10.2); CREATININE, SERUM 1.44 mg/dL (0.72-1.25); POTASSIUM 4.4 mmol/L (3.5-5.1)
[~2018-07-03] VITALS: Ht 182.9 cm; Wt 83.0 kg
[2018-07-03] VITALS (10 sets, daily range): BP systolic 124–147; BP diastolic 72–88
[~2018-07-03] MED LIST changes: +ASPIRIN 325 MG TAB ONE; +BIVALRIUDIN 250 MG/VIAL VIAL IV ONE; +FENTANYL CITRATE/PF 100MCG/2 ML INJ ONE; +HEPARIN SOD (PORCINE) 1000 UNIT/ML 30ML ONE; +HEPARIN SOD/SOD CHLORIDE 2,000 ML ONE; +IOPAMIDOL 370 MG/ML 200 ML INFUS..BTL INJ ONE; +LIDOCAINE HCL 2% LOCAL 20 ML VIAL ONE; +MIDAZOLAM HCL 2 MG/2 ML VIAL ONE; +NEXIUM20 MG PO; +NITROGLYCERIN/D5W 200 MCG/ML 250 ML ONE; +SODIUM CHLORIDE 0.9% 1000ML 1,000 ML ONE; +SODIUM CHLORIDE 0.9% 50ML 50 ML ONE; +TESTOSTERO200 MG/1 M IM; +TICAGRELOR 90 MG TABLET ONE; +VERAPAMIL HCL 2.5 MG/ML 2 ML VIAL ONE; +VITAMIN D250000 UNIT PO
--- OUTSIDE RECORDS SUMMARY | 2018-07-03 12:40 | XMS REPORT | Summary of Care ---
Author Author Sergei HERNANDEZ Melania Organization Unknown Address [facility] Phone Unavailable Care Team Providers Care Animal Husbandman Name Role Phone Melania Mai LVN Unavailable [...] myocardial ischemia, unspecified ischemic chest pain type (786.50, I20.9) Status: Active Hyperlipidemia (272.4, E78.5) Status: [...] smoker Vital Signs Date Test Result Details [id number] Physical Findings 2016 Status: Comments: Colonoscopy Physical Findings 0 Status: Comments: PHQ-2 Adult Depression Screening Physical Findings 6 Status: Comments: PHQ-9 Adult Depression Screening [id number] BP Systolic 100 mm[Hg] Status: Comments: Location: [...] Quality: Normal Results Date Description Value Details [id number] [QLH] T4, FREE T4, FREE 1.3 ng/dl (Normal) Range: 0.8-1.8 [id number] [QLH] TSH, 3RD GENERATION W/REFLEX TO FT4 [...] Problem not documented On: 10-Apr-2016 13:30 Appointment; SELVNI WEBSTER M.D. Encounter Diagnosis: Problem not documented [...]
--- OUTSIDE RECORDS SUMMARY | 2018-07-03 12:40 | XMS REPORT | Continuity of Care Document ---
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 12/14/2013 [place] [facility] Active Problem 05/31/2017 [facility] Chest pain Active Problem 05/31/2017 [facility] Medications Medication Details Route Status Patient Instructions Ordering Provider Order Date Source Allergies, Adverse Reactions, Alerts Substance Category Reaction Severity Reaction type Status Date Reported Comments Source Tetracycline Severe Allergy to Substance Active 05/30/2017 [facility] tetracyclines Assertion Drug allergy Active OPID [place] Immunizations Immunization Date Given Site Status Last Updated Comments Source Results Order Name Results Value Reference Range Date Interpretation Comments Source Serum or plasma creatine kinase MB measurement (mass/volume) Serum or plasma creatine kinase MB measurement (mass/volume) 2.20 0 - 5.0 05/31/2017 [facility] Serum or plasma creatine kinase measurement (enzymatic activity/volume) Serum or plasma creatine kinase measurement (enzymatic activity/volume) 228 30 - 200 05/31/2017 [facility] Troponin I measurement by highly sensitive enzyme immunoassay Troponin I measurement by highly sensitive enzyme immunoassay 0.004 0 - 0.300 05/31/2017 [facility] Automated blood basophil count (count/volume) Automated blood basophil count (count/volume) 0.1 0.0 - 0.1 05/31/2017 [facility] Automated blood basophil count as percentage of total leukocytes Automated blood basophil count as percentage of total leukocytes 1.2 0.0 - 1.0 05/31/2017 [facility] Automated blood eosinophil count Automated blood eosinophil count 0.1 0.0 - 0.4 05/31/2017 [facility] Automated blood eosinophil count as percentage of total leukocytes Automated blood eosinophil count as percentage of total leukocytes 0.9 0.0 - 6.0 05/31/2017 [facility] Automated blood hematocrit (volume fraction) Automated blood hematocrit (volume fraction) 37.2 38.2 - 49.6 05/31/2017 [facility] Automated blood lymphocyte count as percentage ot total leukocytes Automated blood lymphocyte count as percentage ot total leukocytes 23.9 18.0 - 39.1 05/31/2017 [facility] Automated blood monocyte count as percentage of total leukocytes Automated blood monocyte count as percentage of total leukocytes 10.4 4.4 - 11.3 05/31/2017 [facility] Automated blood neutrophil count Automated blood neutrophil count 4.7 2.1 - 6.9 05/31/2017 [facility] Automated blood platelet count (count/volume) Automated blood platelet count (count/volume) 245 140 - 360 05/31/2017 [facility] Automated blood segmented neutrophil count as percentage of total leukocytes Automated blood segmented neutrophil count as percentage of total leukocytes 63.2 38.7 - 80.0 05/31/2017 [facility] Automated erythrocyte mean corpuscular hemoglobin (mass per erythrocyte) Automated erythrocyte mean corpuscular hemoglobin (mass per erythrocyte) 32.0 28 - 32 05/31/2017 [facility] Automated erythrocyte mean corpuscular hemoglobin concentration measurement (mass/volume) Automated erythrocyte mean corpuscular hemoglobin concentration measurement (mass/volume) 35.5 31 - 35 05/31/2017 [facility] Automated erythrocyte mean corpuscular volume Automated erythrocyte mean corpuscular volume 90.3 81 - 99 05/31/2017 [facility] Blood erythrocytes automated count (number/volume) Blood erythrocytes automated count (number/volume) 4.12 4.3 - 5.7 05/31/2017 [facility] Blood hemoglobin measurement (moles/volume) Blood hemoglobin measurement (moles/volume) 13.2 14.0 - 18.0 05/31/2017 [facility] Blood leukocytes automated count (number/volume) Blood leukocytes automated count (number/volume) 7.40 4.8 - 10.8 05/31/2017 [facility] Blood lymphocytes count (number/volume) Blood lymphocytes count (number/volume) 1.8 1.0 - 3.2 05/31/2017 [facility] Blood monocytes automated count (number/volume) Blood monocytes automated count (number/volume) 0.8 0.2 - 0.8 05/31/2017 [facility] Estimated glomerular filtration rate (GFR) determination Estimated glomerular filtration rate (GFR) determination 58 60 05/31/2017 [facility] Glucose measurement Glucose measurement 103 74 - 118 05/31/2017 [facility] Phosphorus measurement Phosphorus measurement 3.0 2.3 - 4.7 05/31/2017 [facility] Plasma globulin measurement (mass/volume) Plasma globulin measurement (mass/volume) 2.9 2.3 - 3.5 05/31/2017 [facility] Serum or plasma alanine aminotransferase measurement (enzymatic activity/volume) Serum or plasma alanine aminotransferase measurement (enzymatic activity/volume) 32 0 - 55 05/31/2017 [facility] Serum or plasma albumin measurement (mass/volume) Serum or plasma albumin measurement (mass/volume) 3.6 3.5 - 5.0 05/31/2017 [facility] Serum or plasma albumin/globulin mass ratio Serum or plasma albumin/globulin mass ratio 1.2 0.8 - 2.0 05/31/2017 [facility] Serum or plasma alkaline phosphatase measurement (enzymatic activity/volume) Serum or plasma alkaline phosphatase measurement (enzymatic activity/volume) 55 40 - 150 05/31/2017 [facility] Serum or plasma anion gap Serum or plasma anion gap 10.1 8 - 16 05/31/2017 [facility] Serum or plasma calcium measurement (mass/volume) Serum or plasma calcium measurement (mass/volume) 8.9 8.4 - 10.2 05/31/2017 [facility] Serum or plasma carbon dioxide, total measurement (moles/volume) Serum or plasma carbon dioxide, total measurement (moles/volume) 25 22 - 29 05/31/2017 [facility] Serum or plasma chloride measurement (moles/volume) Serum or plasma chloride measurement (moles/volume) 106 98 - 107 05/31/2017 [facility] Serum or plasma cholesterol in HDL measurement (mass/volume) Serum or plasma cholesterol in HDL measurement (mass/volume) 39 40 - 60 05/31/2017 [facility] Serum or plasma cholesterol in LDL measurement (mass/volume) Serum or plasma cholesterol in LDL measurement (mass/volume) 62 60 - 130 05/31/2017 [facility] Serum or plasma cholesterol measurement (mass/volume) Serum or plasma cholesterol measurement (mass/volume) 113 0 - 199 05/31/2017 [facility] Serum or plasma creatinine measurement (mass/volume) Serum or plasma creatinine measurement (mass/volume) 1.25 0.72 - 1.25 05/31/2017 [facility] Serum or plasma magnesium measurement (mass/volume) Serum or plasma magnesium measurement (mass/volume) 2.1 1.3 - 2.1 05/31/2017 [facility] Serum or plasma potassium measurement (moles/volume) Serum or plasma potassium measurement (moles/volume) 4.1 3.5 - 5.1 05/31/2017 [facility] Serum or plasma protein measurement (mass/volume) Serum or plasma protein measurement (mass/volume) 6.5 6.5 - 8.1 05/31/2017 [facility] Serum or plasma sodium measurement (moles/volume) Serum or plasma sodium measurement (moles/volume) 137 136 - 145 05/31/2017 [facility] Serum or plasma total bilirubin measurement (mass/volume) Serum or plasma total bilirubin measurement (mass/volume) 0.6 0.2 - 1.2 05/31/2017 [facility] Serum or plasma total cholesterol/cholesterol in HDL mass ratio Serum or plasma total cholesterol/cholesterol in HDL mass ratio 2.9 3.9 - 4.7 05/31/2017 [facility] Serum or plasma triglyceride measurement (mass/volume) Serum or plasma triglyceride measurement (mass/volume) 58 0 - 149 05/31/2017 [facility] Serum or plasma urea nitrogen measurement (mass/volume) Serum or plasma urea nitrogen measurement (mass/volume) 22 7 - 26 05/31/2017 [facility] Serum or plasma urea nitrogen/creatinine mass ratio Serum or plasma urea nitrogen/creatinine mass ratio 18 6 - 25 05/31/2017 [facility] Red Cell Distribution Width 14.8 11.7 - 14.4 05/31/2017 [facility] IM GRANULOCYTES % 0.4 0.0 - 1.0 05/31/2017 [facility] Absolute Immature Granulocyte (auto 0.03 0 - 0.1 05/31/2017 [facility] Aspartate Amino Transf (AST/SGOT) 29 5 - 34 05/31/2017 [facility] Activated partial thromboplastin time (aPTT) in platelet poor plasma bycoagulation assay Activated partial thromboplastin time (aPTT) in platelet poor plasma bycoagulation assay 37.3 23.8 - 35.5 05/30/2017 [facility] Automated urine sediment leukocyte count by microscopy (number/high power field) Automated urine sediment leukocyte count by microscopy (number/high power field) NONE 0 - 5 05/30/2017 [facility] Bacteria detection in urine sediment by light microscopy Bacteria detection in urine sediment by light microscopy NONE NONE 05/30/2017 [facility] Epithelial cells detection in urine sediment by light microscopy Epithelial cells detection in urine sediment by light microscopy NONE NONE 05/30/2017 [facility] Erythrocytes detection in urine sediment by light microscopy Erythrocytes detection in urine sediment by light microscopy NONE 0 - 5 05/30/2017 [facility] INR in Platelet poor plasma by Coagulation assay INR in Platelet poor plasma by Coagulation assay 1.17 05/30/2017 [facility] Prothrombin time (PT) in platelet poor plasma by coagulation assay Prothrombin time (PT) in platelet poor plasma by coagulation assay 14.0 11.9 - 14.5 05/30/2017 [facility] Specific gravity of Urine by Test strip Specific gravity of Urine by Test strip 1.010 1.010 - 1.025 05/30/2017 [facility] Urine clarity Urine clarity CLEAR CLEAR 05/30/2017 [facility] Urine color determination Urine color determination YELLOW YELLOW 05/30/2017 [facility] Urine erythrocytes detection Urine erythrocytes detection NEGATIVE NEGATIVE 05/30/2017 [facility] Urine glucose detection Urine glucose detection NEGATIVE NEGATIVE 05/30/2017 [facility] Urine ketones detection by automated test strip Urine ketones detection by automated test strip NEGATIVE NEGATIVE 05/30/2017 [facility] Urine leukocyte esterase detection by dipstick Urine leukocyte esterase detection by dipstick NEGATIVE NEGATIVE 05/30/2017 [facility] Urine nitrite detection Urine nitrite detection NEGATIVE NEGATIVE 05/30/2017 [facility] Urine pH measurement by automated test strip Urine pH measurement by automated test strip 6 5 - 7 05/30/2017 [facility] Urine protein measurement by test strip (mass/volume) Urine protein measurement by test strip (mass/volume) NEGATIVE NEGATIVE 05/30/2017 [facility] Urine total bilirubin measurement (mass/volume) Urine total bilirubin measurement (mass/volume) NEGATIVE NEGATIVE 05/30/2017 [facility] Urine urobilinogen measurement by test strip (mass/volume) Urine urobilinogen measurement by test strip (mass/volume) 0.2 0.2 - 1 05/30/2017 [facility] B-Type Natriuretic Peptide 30.3 0 - 100 05/30/2017 [facility] Chest 2 views DX Chest 2 views DX Chest x-ray 2 views INDICATION: Fever and acute URI COMPARISON: 01/12/2016 FINDINGS: Heart size and central vasculature are within normal limits. There is no effusion or pneumothorax. Increased right basilar airspace opacity is noted, worrisome for acute infiltrate. No acute osseous pathology. IMPRESSION: Findings suggestive of right basilar pneumonia. Follow-up radiographs advised after completion of treatment to ensure resolution. 05/30/2014 - - Read by: Tea Hart MD Dictated Date/time: 05/30/14 14:54 Electronically Signed by: Tea Hart MD 05/30/14 14:55 FINAL REPORT LOREN Kaisera Vital Signs Vital Sign Value Date Comments Source Height 185.42 cm 12/16/2013 [facility] BMI Calculated 27.1 12/16/2013 [facility] Weight 93.182 12/16/2013 [facility] Encounters Location Location Details Encounter Type Encounter Number Reason For Visit Attending Provider ADM Date DC Date Status Source [facility] Outpatient [id number] Marin Ramesh 12/16/2013 12/17/2013 [facility] Outpatient Imaging - [place] [facility] [id number] Chad Waters 05/30/2014 05/31/2014 [facility] Leeadena Discharged Inpatient (obs) [id number] TAMMY QUINTERO MD 05/30/2017 05/31/2017 [facility] Procedures Procedure Code Date Perfomer Comments Source X-ray of chest, two views [id number] 05/30/2017 [facility]
--- OUTSIDE RECORDS SUMMARY | 2018-07-03 12:40 | XMS REPORT | Summary of Care ---
Author Organization Unknown Address Unknown Phone Unavailable Encounter [facility] Encntr_kenny(ARAVIND) [id number] Date(s): 12/16/13 - 12/16/13 [facility] [address] Discharge Disposition: Home Physician Attending: Marin Chandler MD Physician_Referring: Marin Chandler MD Reason for Visit 440.21 ATHEROSCLER [place] ARTERIES THE EXTREMITIES W/IN Vital Signs Most recent to 1 oldest [Reference Range]: Height 185.42 cm (12/16/13 1:04 PM) Weight 93.182 kg (12/16/13 1:04 PM) Body Mass Index 27.1 m2 (12/16/13 1:04 PM) Problem List No data available for this section Allergies, Adverse Reactions, Alerts Substance Reaction Severity Status tetracyclines Active Medications No data available for this section Medications Administered During Your Visit No data available for this section Immunizations No data available for this section
--- OUTSIDE RECORDS SUMMARY | 2018-07-03 12:40 | XMS REPORT | Summary of Care ---
Author Organization Unknown Address Unknown Phone Unavailable Encounter [facility] Encntr_alias(ARAVIND) [id number] Date(s): 05/30/14 - 05/30/14 [facility] Outpatient Imaging - [id number] [place] [address] [phone] Discharge Disposition: Home Physician Attending: Chad Waters MD Vital Signs No data available for this section Problem List No data available for this section Allergies, Adverse Reactions, Alerts Substance Reaction Severity Status tetracyclines Active Medications No data available for this section Results No data available for this section Immunizations No data available for this section Procedures No data available for this section Social History No data available for this section Assessment and Plan No data available for this section
--- NOTE | 2018-07-03 18:00 | NUR ---
Angiomax infusion completed at approximately 1800.
--- NOTE | 2018-07-03 18:55 | NUR ---
bedside report received from Stephanie Isaacs RN. Alert oriented and appropriate, PERRLA, respirations even and unlabored to room air. Pulses x4 extremities equal and strong. right radial with TR band. +neurovascular function at this time. Cap fill brisk < 3 sec. Skin warm and dry integrity appears intact. IV 20g to upper arm presents healthy w/o s/s of infiltration or complaint. Abdomen soft and supple. pt offered toileting, denies need to urinate or defecate. Personal affects with patient. Family at bedside. Pt and family verbalizes understanding of POC. VS wnl , NSR/SB per bedside monitor. Currently w/o complaint of pain or need. no gross issues evident at this time. TR band intact, continuing to monitor -cgf
--- NOTE | 2018-07-03 21:15 | NUR ---
TR band removed successfully after an hour of diminishing titration. Pt meets DC criteria. right radial assessed for s/s of complication and presence of hematoma. right arm warm, dry, no discolor, and pulses present. IV removed from left proximal forearm. Distal tip appears intact. VS WNL. Pt denies pain, sob, or need at this time. Family at bedside. pt ambulated to bathroom and dressed w/o incident. Review of discharge paperwork and follow up instructions. verbalized understanding. Pt to wheelchair and transported to front of hospital. Transferred to private vehicle under own strength w/o incident with DC paperwork in hand. - cgf
--- NOTE | 2018-07-04 01:01 | Operative Report ---
DATE OF PROCEDURE: 07/03/2018 SURGEON: Zhen Hewitt MD INDICATIONS: Coronary artery disease, abnormal stress test, unstable angina. PROCEDURES PERFORMED: 1. Left heart catheterization, selective coronary angiography. 2. Stent placement to the obtuse marginal branch of the circumflex artery. 3. Deployment of right wrist TR band. COMPLICATIONS: None. RECOMMENDATIONS: Dual antiplatelet therapy for life, staged intervention of left anterior descending and diagonal arteries in bifurcating fashion. DESCRIPTION OF PROCEDURE: Access obtained in the right radial artery. A 5-Maltese sheath was placed. Diagnostic coronary angiogram revealed patent left main. Stent in the left anterior descending artery. It was widely patent. Distal to the stent the bifurcation of a large diagonal artery (2.5 mm). There was a 90% stenosis. Ostial diagonal 80% stenosis. Left anterior descending artery obtuse marginal branch 95% stenosis. Right coronary artery diffuse 30% to 50% stenosis with calcification. LV end-diastolic pressure of 10. No gradient across aortic valve pullback. A decision was made to intervene on the obtuse marginal branch. The patient received Angiomax for anticoagulation. The left main was cannulated using SEVERINO 5-Maltese guiding catheter. A short Runthrough wire was advanced across the lesion. Primary stent 2.758 mm [place] [employer] Synergy with excellent end result, less than 10% residual stenosis, JONATHAN-3 flow. No complications. Right wrist TR band applied. The patient was discharged home same day. Zhen Hewitt MD KSB/MODL /[id number]
== END | disposition home or self-care (01) ==
LOC: CATH LAB 12:30
PROVIDERS: ATTEND Internal Medicine Interventional Cardiology
DX: I25.118 Atherosclerotic heart disease of native coronary artery with other forms of angina pectoris (principal); Z01.812 Encounter for preprocedural laboratory examination; E03.9 Hypothyroidism, unspecified; Z88.8 Allergy status to other drugs, medicaments and biological substances
CPT/HCPCS: 93458; C9600; 36415; 80053; 85025; 85610; 92928; C1769; C1874; C1887; J0583; J1644; J2001; J2250; J7030; Q9967

== ENCOUNTER → 2018-08-07 | Day surgery (SDC) | payer MEDICARE, OTHER ==
[2018-08-05 13:09] LABS: BASOPHILS # (AUTO) 0.1 (0.0-0.1); BASOPHILS % 1.3 % (0.0-1.0); EOSINOPHILS # (AUTO) 0.1 (0.0-0.4); HEMATOCRIT 40.1 % (38.2-49.6); HEMOGLOBIN 13.3 g/dL (14.0-18.0); LYMPHOCYTES # (AUTO) 1.7 (1.0-3.2); LYMPHOCYTES % 19.4 % (18.0-39.1); MEAN CORPUSCULAR HEMOGLOBIN 27.9 pg (28-32); MEAN CORPUSCULAR HGB CONC 33.2 g/dL (31-35); MEAN CORPUSCULAR VOLUME 84.2 fL (81-99); MONOCYTES # (AUTO) 0.9 (0.2-0.8); MONOCYTES % 9.8 % (4.4-11.3); NEUTROPHILS % 67.9 % (38.7-80.0); PLATELET COUNT 239 x10e3/uL (140-360); RED BLOOD COUNT 4.76 x10e6/uL (4.3-5.7); RED CELL DISTRIBUTION WIDTH 15.8 % (11.7-14.4)
[2018-08-05 13:36] LABS: ALBUMIN 3.8 g/dL (3.5-5.0); ALBUMIN/GLOBULIN RATIO 1.3 (0.8-2.0); ANION GAP 12.3 mmol/L (8-16); CALCIUM 9.4 mg/dL (8.4-10.2); CREATININE, SERUM 1.56 mg/dL (0.72-1.25); POTASSIUM 4.3 mmol/L (3.5-5.1)
[~2018-08-07] VITALS: Ht 182.9 cm; Wt 85.7 kg
[2018-08-07] VITALS (11 sets, daily range): BP systolic 119–147; BP diastolic 60–87
[~2018-08-07] MED LIST changes: -NITROGLYCERIN/D5W 200 MCG/ML 250 ML ONE
--- NOTE | 2018-08-07 13:02 | NUR ---
1302PM Received rm # [id number] Identiferx2 C x3 stent repair Dr Hewitt.Angiomax drip and Tr band 13cc removal at 1530pm. Back to baseline orienttonx4 Resp shallow and regular 99% Ra Abdomen soft and non tender denies necessity to defecate or urinate. Bilateral PPx4 Dp/Pt .RT Tr-band site w/o signs hematoma or oozing. NO gross issues pain pallor,pressure or dysrhythmia.No Neuro vascular dysfunction. Assist with po intake.Angiomax completed. Iv site w/o s/s infiltration. 1530 TR band air removal started Normal neuro vascular function.No ooze or hematoma DC plans discussed with Deborah . Has copies of dc plans and understands importance of f/o care 1630 TR band air release completed with increment pulls as 1530,1545,1600,and 1630 Completion no s/s hematoma or oozing sterile 2x2 with Tegaderm and wrist splint in place Neuro vascular function remains intact. resting awaiting dc at 1700 No c/o Cp or SOB has copies of POC Monitor SR no ectopics no gross issues pain pallor pressure or dysrhythmia. ds/rn
--- NOTE | 2018-08-07 17:00 | NUR ---
1630 TR band is off no Gross issues with pain pallor pressure or dysrhythmia.Rt TR band site no hematoma or bleeding Normal neuro vascular function HOB elevated and aroused for discharge Deborah has POC. 1700pm Dressed and assisted to car per [facility] employee per w/c. Iv removed site w/o s/s infiltration Coban dressing. NO gross issues pain pallor or dysrhythmia.Coban dressing intact.with Wrist splint. NO oozing Has copies of POC and aware of importance of f/o care. ds/rn
--- NOTE | 2018-10-20 16:49 | Operative Report ---
DATE OF PROCEDURE: 08/07/2018 SURGEON: Zhen Hewitt MD INDICATION: Coronary artery disease. PROCEDURES PERFORMED: 1. Left heart catheterization. 2. Stent placement to the left anterior descending and diagonal artery in bifurcating fashion. 3. Deployment of right wrist TR band. COMPLICATIONS: None. RECOMMENDATIONS: Dual antiplatelet therapy for life. DESCRIPTION OF PROCEDURE: Access obtained in the right radial artery. A 6-Namibian sheath was placed. Angiomax administered for anticoagulation, 80% left anterior descending artery at its proximal portion and at the portion of bifurcation of a diagonal artery, which had 80% ostial lesion. The left main was cannulated using an XB3.5 guiding catheter. Two wires advanced on the left anterior descending and diagonal artery. A Tryton stent was deployed from the main branch into the side branch. Postdilatation performed. The wire was then removed from the diagonal artery, advanced on the left anterior descending artery. A [employer] Synergy 3.0 x 24 mm was deployed in the left anterior descending artery. Kissing balloon angioplasty with 3 and 2.5 mm balloons were performed with excellent end result. Less than 10% residual stenosis in both diagonal and left anterior descending artery. JONATHAN-3 flow. No complications. Right wrist TR band applied. The patient discharged home same day. Zhen Hewitt MD KSB/MODL /[id number]
== END | disposition home or self-care (01) ==
LOC: CATH LAB 08:00
PROVIDERS: ATTEND Internal Medicine Interventional Cardiology
DX: I25.119 Atherosclerotic heart disease of native coronary artery with unspecified angina pectoris (principal); Z01.812 Encounter for preprocedural laboratory examination; Z79.02 Long term (current) use of antithrombotics/antiplatelets
CPT/HCPCS: 36415; 80053; 85025; C1725 ×3; C1874; C1876; C9600; J0583; J1644; J2001; J2250; J7030; Q9967; 92928; 92929; J3010

== ENCOUNTER → 2019-02-02 | Outpatient (CLI) | payer MEDICARE, OTHER ==
[~2019-02-02] MED LIST changes: +ALBUTEROL SULF 0.083% NEB SOLN 3 ML NEB ONE; -ASPIRIN 325 MG TAB ONE; -BIVALRIUDIN 250 MG/VIAL VIAL IV ONE; -FENTANYL CITRATE/PF 100MCG/2 ML INJ ONE; -HEPARIN SOD (PORCINE) 1000 UNIT/ML 30ML ONE; -HEPARIN SOD/SOD CHLORIDE 2,000 ML ONE; -IOPAMIDOL 370 MG/ML 200 ML INFUS..BTL INJ ONE; -LIDOCAINE HCL 2% LOCAL 20 ML VIAL ONE; -MIDAZOLAM HCL 2 MG/2 ML VIAL ONE; -SODIUM CHLORIDE 0.9% 1000ML 1,000 ML ONE; -SODIUM CHLORIDE 0.9% 50ML 50 ML ONE; -TICAGRELOR 90 MG TABLET ONE; -VERAPAMIL HCL 2.5 MG/ML 2 ML VIAL ONE
--- NOTE | 2019-02-02 14:14 | Diagnostic Imaging Report ---
EXAM: CHEST 2 VIEWS DATE: 02/02/2019 1:29 PM INDICATION: Shortness of breath COMPARISON: 06/22/2018 FINDINGS: The trachea is midline. The lungs are symmetrically expanded without evidence for large focal consolidation, pneumothorax, or significant pleural effusion. The cardiomediastinal silhouette and pulmonary vasculature are within normal limits. Chronic/healed left fourth through seventh sided rib fractures again noted. Degenerative changes noted of the spine. No acute osseous abnormality is identified. The surrounding soft tissues are unremarkable. IMPRESSION: No acute cardiopulmonary process identified. Signed by: Dr. Armen Guillory MD on 02/02/2019 2:11 PM
--- NOTE | 2019-02-14 04:56 | Pulmonary Function Test ---
DATE OF STUDY: 02/02/2019 REFERRING PHYSICIAN: Guanaco Azul MD SPIROMETRY: Spirometry demonstrates normal findings. FEV1 was 2.92 L or 88% predicted and FVC was 3.80 L or 88% predicted in the setting of normal FEV1/FVC ratio. After bronchodilator administration, there was no statistically significant change in spirometry. LUNG VOLUMES: Lung volumes as measured by nitrogen washout method are consistent with very mild restriction. Total lung capacity was 4.84 L or 66% predicted. DIFFUSION CAPACITY: Diffusion capacity was mildly decreased at 17.83 mL/mmHg/minute or 65.4% predicted. SUMMARY: Mild restriction based on lung volumes, mild diffusion capacity defect. This may be seen in alveolar interstitial lung disease. Clinical correlation is recommended. Guanaco Azul MD GMN/MODL /[id number] MTDD
== END ==
LOC: RESP 13:01
PROVIDERS: ATTEND Internal Medicine Critical Care Medicine
DX: J44.9 Chronic obstructive pulmonary disease, unspecified (principal); R06.00 Dyspnea, unspecified; I25.10 Atherosclerotic heart disease of native coronary artery without angina pectoris; K21.0 Gastro-esophageal reflux disease with esophagitis
CPT/HCPCS: 71046; 94060; 94640; 94727; 94729